=== PATIENT | male | born 1995 | race African-American/Black ===

== ENCOUNTER 2016-11-06 16:41 | Emergency (ER) | payer OTHER, BC ==
[~2016-11-06] VITALS: Ht 172.7 cm; Wt 65.8 kg
[~2016-11-06 16:41] MED LIST: BACTRIM DS TABL1 TA1 PO; MOTRIN600 M1 PO; NO MEDICATIONS; PYRIDIUM100 MG PO
== END 2016-11-06 18:20 | disposition home or self-care (01) ==
LOC: CED 16:41 → CFTX 16:41
DX: J03.90 Acute tonsillitis, unspecified (principal); Z88.0 Allergy status to penicillin
CPT/HCPCS: 87651; 99283

== ENCOUNTER 2016-11-19 22:12 | Emergency (ER) | payer OTHER, BC | END 2016-11-19 23:51 | disposition left against medical advice (07) | LOC: CED 22:12 → CFTX 22:12 → CED 23:51 | DX: Z53.21 Procedure and treatment not carried out due to patient leaving prior to being seen by health care provider (principal) ==